=== PATIENT | female | born 1965 | race Caucasian/White ===

== ENCOUNTER 2016-12-26 05:29 | Day surgery (SDC) | payer BC ==
[2016-12-19 09:28] VITALS: BP 114/78
[~2016-12-26] VITALS: Ht 162.6 cm; Wt 72.0 kg
[~2016-12-26 05:29] MED LIST: ALPR0.5T6 PO; TEMA15CA PO
[2016-12-26] MEDS ORDERED: LIDOCAINE 1%, 2ML ONE (06:08)
[2016-12-26] MEDS ORDERED: LACTATED RINGERS 1,000 ML IV SCH (06:27)
[2016-12-26] MEDS ORDERED: LIDOCAINE 1%, 2ML SQ PRN (06:30)
[2016-12-26] MEDS ORDERED: INDOCYANINE GREEN 25 MG VIAL ONE (07:02)
[2016-12-26] MEDS ORDERED: EPINEPHRINE SYRINGE 0.1 MG/ML, 10ML ONE (07:02)
[2016-12-26] MEDS ORDERED: MIDAZOLAM 1 MG/ML, 2ML ONE ×2 (07:11→07:42)
[2016-12-26] MEDS ORDERED: FENTANYL PF 100 MCG/2ML ONE (07:12)
[2016-12-26] MEDS ORDERED: PROPOFOL 10 MG/ML, 50ML ONE (07:29)
[2016-12-26] MEDS ORDERED: LABETALOL 5MG/ML, 20ML IV PRN (07:30)
[2016-12-26] MEDS ORDERED: METOCLOPRAMIDE 5 MG/ML, 2ML IV PRN (07:30)
[2016-12-26] MEDS ORDERED: ALBUTEROL SULFATE 2.5 MG/3 ML NPPB PRN (07:30)
[2016-12-26] MEDS ORDERED: FENTANYL PF 100 MCG/2ML IV PRN (07:30)
[2016-12-26] MEDS ORDERED: HYDROmorphone 1 MG/ML, 1ML IV PRN (07:30)
[2016-12-26] MEDS ORDERED: ACETAMINOPHEN 325 MG TABLET PO PRN (07:30)
[2016-12-26] MEDS ORDERED: EPHEDRINE 50 MG/ML, 1ML IVPush PRN (07:30)
[2016-12-26] MEDS ORDERED: ONDANSETRON 2MG/ML, 2ML IVPush PRN (07:30)
== END 2016-12-26 10:15 ==
LOC: OUT 05:29 → MERGE 07:30 → OUT 10:15
PROVIDERS: ATTEND Internal Medicine Gastroenterology
DX: Z09 Encounter for follow-up examination after completed treatment for conditions other than malignant neoplasm (principal); D12.3 Benign neoplasm of transverse colon; K63.5 Polyp of colon; K57.30 Diverticulosis of large intestine without perforation or abscess without bleeding; K64.8 Other hemorrhoids; J44.9 Chronic obstructive pulmonary disease, unspecified; F41.9 Anxiety disorder, unspecified; G43.909 Migraine, unspecified, not intractable, without status migrainosus; F17.200 Nicotine dependence, unspecified, uncomplicated; Z90.710 Acquired absence of both cervix and uterus; Z88.0 Allergy status to penicillin; Z88.8 Allergy status to other drugs, medicaments and biological substances; Z87.19 Personal history of other diseases of the digestive system
CPT/HCPCS: 45380; 45385; 88305; J2250; J2704; J3010; J3490; J7120

== ENCOUNTER → 2017-11-11 | Outpatient (CLI) | payer BC ==
[~2017-11-11] MED LIST changes: +ACET-1600 PO
[2017-11-11 08:58] LABS: MICROSCOPIC NOT IND
[2017-11-11 09:01] LABS: CULTURE INDICATED? NO
[2017-11-11 09:05] LABS: INTERNATIONAL NORMALIZED RATIO 0.97 (0.93-1.1)
[2017-11-11 09:06] LABS: ANION GAP 8 mmol/L (5-15); CALCIUM 8.9 mg/dL (8.5-10.1); CHLORIDE 114 mmol/L (98-107); CREATININE 0.85 mg/dL (0.55-1.02)
[2017-11-11 09:07] LABS: BASOPHILS # (AUTO) 0.07 x10^3/uL (0-0.1); BASOPHILS % (AUTO) 1 % (0-1); EOSINOPHILS # (AUTO) 0.09 x10^3/uL (0-0.4); EOSINOPHILS % (AUTO) 1 % (1-7); LYMPHOCYTES # (AUTO) 3.33 x10^3/uL (1-3.4); LYMPHOCYTES % (AUTO) 21 % (22-44); MD NO; MEAN CORPUSCULAR HEMOGLOBIN 30.5 pg (27.0-34.8); MEAN CORPUSCULAR HGB CONC 33.5 g/dL (32.4-35.8); MEAN CORPUSCULAR VOLUME 90.9 fL (80-100); MONOCYTES % (AUTO) 3 % (2-9); NEUTROPHILS # (AUTO) 11.75 x10^3/uL (1.8-6.8); NEUTROPHILS % (AUTO) 75 % (42-75); PLATELET COUNT 360 x10^3/uL (130-400); RED BLOOD COUNT 5.04 x10^6/uL (3.82-5.3); RED CELL DISTRIBUTION WIDTH 14.3 % (9.6-15.2)
== END | disposition home or self-care (01) ==
LOC: STAR 07:53
PROVIDERS: ATTEND Neurological Surgery
DX: Z01.818 Encounter for other preprocedural examination (principal); M51.37 Other intervertebral disc degeneration, lumbosacral region; J84.10 Pulmonary fibrosis, unspecified
CPT/HCPCS: 36415; 71046; 72114; 80048; 81003; 85025; 85610; 85730; 93005

== ENCOUNTER 2017-11-25 05:23 | Inpatient (IN) | payer BC ==
[~2017-11-25] VITALS: Ht 162.6 cm; Wt 88.9 kg
[2017-11-25] MEDS ORDERED: LACTATED RINGERS 1,000 ML IV SCH (06:01)
[2017-11-25 06:27] VITALS: BP 112/76
[2017-11-25] MEDS ORDERED: HEPARIN 1,000 UNITS/ML, 30ML ONE (06:47)
[2017-11-25] MEDS ORDERED: EPINEPHRINE 1 MG/ML, 1ML ONE (06:56)
[2017-11-25] MEDS ORDERED: METHYLENE BLUE 10 MG/ML 10ML ONE (06:56)
[2017-11-25] MEDS ORDERED: THROMBIN 5,000 UNIT VIAL TP ONE (06:56)
[2017-11-25] MEDS ORDERED: BACITRACIN 50,000 UNIT ONE (06:56)
[2017-11-25] MEDS ORDERED: BUPIVACAINE/PF 0.5% ONE (06:56)
[2017-11-25] MEDS ORDERED: ACETAMINOPHEN 500 MG TABLET PO ONE (07:00)
[2017-11-25] MEDS ORDERED: GABAPENTIN 300 MG CAPSULE PO ONE (07:00)
[2017-11-25] MEDS ORDERED: SCOPOLAMINE PATCH, 1.5MG PATCH.TD72 TD ONE (07:00)
[2017-11-25] MEDS ORDERED: FAMOTIDINE 20 MG TABLET PO ONE (07:00)
[2017-11-25] MEDS ORDERED: ONDANSETRON ODT 8 MG PO ONE (07:00)
[2017-11-25] MEDS ORDERED: OXYcodone IR 5MG TABLET PO ONE (07:00)
[2017-11-25] MEDS ORDERED: DIAZEPAM 5 MG TABLET PO ONE (07:00)
[2017-11-25] MEDS ORDERED: FENTANYL PF 100 MCG/2ML ONE (07:15)
[2017-11-25] MEDS ORDERED: MIDAZOLAM 1 MG/ML, 2ML ONE (07:15)
[2017-11-25] MEDS ORDERED: PROPOFOL 50 ML ONE ×2 (07:16→08:53)
[2017-11-25] MEDS ORDERED: ROCURONIUM 10MG/ML,5ML ONE (07:41)
[2017-11-25] MEDS ORDERED: SUCCINYLCHOLINE 20 MG/ML, 10ML ONE (09:30)
[2017-11-25] MEDS ORDERED: PROPOFOL 10 MG/ML, 20ML ONE (09:30)
[2017-11-25] MEDS ORDERED: hydrALAzine 20 MG/ML, 1ML IV PRN (09:30)
[2017-11-25] MEDS ORDERED: EPHEDRINE 50 MG/ML, 1ML IVPush PRN (09:30)
[2017-11-25] MEDS ORDERED: ONDANSETRON ODT 8 MG PO PRN (09:30)
[2017-11-25] MEDS ORDERED: ALBUTEROL/IPRATROPIUM 2.5MG/0.5MG, 3 ML NPPB PRN (09:30)
[2017-11-25] MEDS ORDERED: NEOSTIGMINE 1 MG/ML, 10ML ONE (09:30)
[2017-11-25] MEDS ORDERED: HYDROcodone/APAP 7.5-325MG/15ML UDC PO PRN (09:30)
[2017-11-25] MEDS ORDERED: PROMETHAZINE 25 MG/ML, 1ML IV PRN (09:30)
[2017-11-25] MEDS ORDERED: MEPERIDINE/PF 25MG/0.5ML IVPush PRN (09:30)
[2017-11-25] MEDS ORDERED: ALBUTEROL SULFATE 2.5 MG/3 ML NPPB PRN (09:30)
[2017-11-25] MEDS ORDERED: DEXAMETHASONE 4 MG/ML, 1ML ONE (09:30)
[2017-11-25] MEDS ORDERED: GLYCOPYRROLATE 0.2MG/1ML, 5ML ONE (09:30)
[2017-11-25] MEDS ORDERED: LABETALOL 5MG/ML, 20ML IV PRN (09:30)
[2017-11-25] MEDS ORDERED: CEFAZOLIN 1,000 MG ONE (09:30)
[2017-11-25] MEDS ORDERED: MIDAZOLAM 1 MG/ML, 2ML IV PRN (09:30)
[2017-11-25] MEDS ORDERED: FENTANYL PF 100 MCG/2ML IV PRN (09:30)
[2017-11-25] MEDS ORDERED: OXYcodone 5 MG/5 ML ORAL.SOL UDC PO PRN (09:30)
[2017-11-25] MEDS ORDERED: BISACODYL 10 MG SUPP PR PRN (10:00)
[2017-11-25] MEDS ORDERED: ONDANSETRON 2MG/ML, 2ML IVPush PRN (10:00)
[2017-11-25] MEDS ORDERED: MAGNESIUM HYDROXIDE 8%, 30ML UDC PO PRN (10:00)
[2017-11-25] MEDS ORDERED: PHARMACY MAY ADJ FOR RENAL FX MC PRN (10:00)
[2017-11-25] MEDS ORDERED: PROMETHAZINE 25 MG/ML, 1ML IM PRN (10:00)
[2017-11-25] MEDS ORDERED: HYDROmorphone 2 MG/ML, 1ML IVPush PRN (10:00)
[2017-11-25] MEDS ORDERED: DIPHENHYDRAMINE 50 MG/ML, 1ML IVPush PRN (10:00)
[2017-11-25] MEDS ORDERED: HYDROmorphone 2 MG/ML, 1ML ONE (10:18)
[2017-11-25] MEDS ORDERED: OXYcodone 5 MG/5 ML ORAL.SOL UDC ONE (10:18)
[2017-11-25] MEDS: HYDROmorphone 1 MG/ML, 1ML IV PRN ×2 (10:22→10:32)
[2017-11-25] MEDS: TIZANIDINE 4MG TABLET PO PRN ×2 (11:44→19:53)
[2017-11-25] MEDS: ACETAMINOPHEN 325 MG TABLET PO PRN ×3 (12:42→23:18)
[2017-11-25 13:45] VITALS: BP 106/67
[2017-11-25] MEDS: NS + 20MEQ KCL 1,000 ML IV SCH ×2 (16:07→23:57)
[2017-11-25] MEDS: CEFAZOLIN PMX 1GM/50ML 50 ML IVPB SCH (16:07)
[2017-11-25 20:16] VITALS: BP 108/70
[2017-11-25] MEDS: SODIUM CHLORIDE FLUSH 10ML SYR IVF SCH (20:57)
[2017-11-25] MEDS: MEPERIDINE/PF 100 MG/ML IM PRN (21:52)
[2017-11-25 23:57] VITALS: BP 97/60
[2017-11-26] MEDS: CEFAZOLIN PMX 1GM/50ML 50 ML IVPB SCH (00:43)
[2017-11-26] MEDS: TIZANIDINE 4MG TABLET PO PRN (04:02)
[2017-11-26 04:44] VITALS: BP 94/61
[2017-11-26 08:49] VITALS: BP 98/65
[2017-11-26] MEDS: SODIUM CHLORIDE FLUSH 10ML SYR IVF SCH ×2 (09:31→21:00)
[2017-11-26] MEDS: SENNA/DOCUSATE TABLET PO SCH (09:31)
[2017-11-26] MEDS: NS + 20MEQ KCL 1,000 ML IV SCH ×2 (09:34→21:00)
[2017-11-26] MEDS: ACETAMINOPHEN 325 MG TABLET PO PRN (10:41)
[2017-11-26] MEDS: METHOCARBAMOL 750 MG TABLET PO PRN ×2 (12:12→18:41)
[2017-11-26 13:25] VITALS: BP 84/54
[2017-11-26 15:08] VITALS: BP 104/70
[2017-11-26 19:45] VITALS: BP 122/81
[2017-11-26] MEDS: MEPERIDINE/PF 100 MG/ML IM PRN (20:51)
[2017-11-27 02:00] VITALS: BP 120/78
[2017-11-27] MEDS: METHOCARBAMOL 750 MG TABLET PO PRN ×2 (02:30→08:27)
[2017-11-27] MEDS: SODIUM CHLORIDE FLUSH 10ML SYR IVF SCH (08:26)
[2017-11-27] MEDS: SENNA/DOCUSATE TABLET PO SCH (08:27)
[2017-11-27] MEDS ORDERED: GABAPENTIN 300 MG CAPSULE PO SCH (09:00)
[2017-11-27 09:03] VITALS: BP 121/79
[2017-11-27] MEDS ORDERED: METH750T2 PO (09:08)
[2017-11-27] MEDS ORDERED: GABA300C10 PO (09:08)
[2017-11-27] MEDS ORDERED: TRAM50TA2 PO (09:08)
[2017-11-27 10:31] VITALS: BP 118/75
[2017-11-27] MEDS: NS + 20MEQ KCL 1,000 ML IV SCH (11:00)
== END 2017-11-27 11:30 | disposition home or self-care (01) | DRG 460 ==
LOC: ORIP 05:23 → 4NOR 11:16 → DCLOUNGE 11-27 11:15
PROVIDERS: ADMIT Neurological Surgery; ATTEND Neurological Surgery
PROC: 0SB40ZZ Excision of Lumbosacral Disc, Open Approach (ICD-10-PCS; 2017-11-25)
PROC: 3E0U0GB Introduction of Recombinant Bone Morphogenetic Protein into Joints, Open Approach (ICD-10-PCS; 2017-11-25)
PROC: 4A11X4G Monitoring of Peripheral Nervous Electrical Activity, Intraoperative, External Approach (ICD-10-PCS; 2017-11-25)
PROC: 0SG30A0 Fusion of Lumbosacral Joint with Interbody Fusion Device, Anterior Approach, Anterior Column, Open Approach (ICD-10-PCS; principal; 2017-11-25 07:30)
DX: M51.37 Other intervertebral disc degeneration, lumbosacral region (principal); M54.17 Radiculopathy, lumbosacral region; M40.47 Postural lordosis, lumbosacral region; G43.909 Migraine, unspecified, not intractable, without status migrainosus; Z88.8 Allergy status to other drugs, medicaments and biological substances; Z88.0 Allergy status to penicillin; Z91.040 Latex allergy status; Z90.710 Acquired absence of both cervix and uterus; Z83.3 Family history of diabetes mellitus
CPT/HCPCS: 72100; 74018; 95938; 95941; C1713; C1776; J0171; J0690; J1100; J1170; J1644; J2250; J2704; J2710; J3010; J3480; J3490; Q0162; C1762; J0330; J2175; J7120; Q9968